=== PATIENT | female | born 1955 | race Caucasian/White ===

== ENCOUNTER 2023-05-23 12:40 | Inpatient (IN) | payer MEDICARE, OTHER ==
[~2023-05-23] VITALS: Ht 157.5 cm; Wt 68.9 kg
[2023-05-23] MEDS ORDERED: LABETALOL HCL IV 100MG VIAL ONE (13:00)
[2023-05-23] MEDS: LABETALOL 20 MG/4 ML VIAL IV ONE (13:10)
[2023-05-23] MEDS ORDERED: MECL-182 PO (13:32)
[2023-05-23] MEDS ORDERED: BRIM5DRO2 EACHEYE (13:32)
[2023-05-23] MEDS ORDERED: ATOR40TA PO (13:32)
[2023-05-23] MEDS ORDERED: ICOS1CAP PO (13:32)
[2023-05-23] MEDS ORDERED: EMPA10TA PO (13:32)
[2023-05-23] MEDS ORDERED: ERGO500093 PO (13:32)
[2023-05-23] MEDS ORDERED: ASPI-1420 PO (13:32)
[2023-05-23] MEDS ORDERED: INSU100I26 SQ (13:32)
[2023-05-23] MEDS ORDERED: ESCI10TA PO (13:32)
[2023-05-23] MEDS ORDERED: VALS1TAB7 PO (13:32)
[2023-05-23 13:41] LABS: BASOPHILS # (AUTO) 0.1 K/uL (0.0-0.2); BASOPHILS % (AUTO) 1.1 % (0.0-2.0); EOSINOPHILS # (AUTO) 0.1 K/uL (0.0-0.7); EOSINOPHILS % (AUTO) 1.5 % (0.0-6.0); HEMATOCRIT 37 % (33-45); HEMOGLOBIN 12.3 g/dL (11.5-14.8); LYMPHOCYTES % (AUTO) 34.5 % (20.0-44.0); MEAN CORPUSCULAR HEMOGLOBIN 30 PG (26.0-33.0); MEAN CORPUSCULAR HGB CONC 34 g/dl (31.0-36.0); MEAN CORPUSCULAR VOLUME 88 fL (82-100); MONOCYTES # (AUTO) 0.4 K/uL (0.1-1.30); MONOCYTES % (AUTO) 6.9 % (2.0-12.0); NEUTROPHILS # (AUTO) 3.3 K/uL (1.8-8.9); PLATELET COUNT (AUTO) 348 K/uL (150-450); RED BLOOD CELL COUNT(AUTO) 4.16 MIL/uL (4.0-5.2); RED CELL DISTRIBUTION WIDTH 13.5 % (11.5-15.0); WHITE BLOOD COUNT (AUTO) 5.9 K/uL (4.3-11.0)
[2023-05-23 13:50] LABS: CALCIUM, SERUM 8.7 mg/dL (8.5-10.1); CARBON DIOXIDE 23 mmol/L (21-32); CHLORIDE 104 mmol/L (98-107); CREATININE 1.5 mg/dL (0.6-1.3); GLUCOSE 334 mg/dL (74-106); POTASSIUM 4.3 mmol/L (3.5-5.1); SODIUM SERUM 137 mmol/L (136-145); UREA NITROGEN, BLOOD 60 mg/dL (7-18)
[2023-05-23] MEDS ORDERED: hydrALAZINE HCL IV 20 MG VIAL ONE (13:54)
[2023-05-23] MEDS ORDERED: ASPIRIN 325 MG TABLET ONE (13:54)
[2023-05-23] MEDS: ASPIRIN 325 MG TABLET PO ONE (13:58)
[2023-05-23] MEDS: hydrALAZINE HCL IV 20 MG VIAL IV ONE (13:58)
[2023-05-23 14:09] LABS: INR 0.94 (0.91-1.10); PARTIAL THROMBOPLASTIN TIME 23.4 SEC (24.3-34.3)
[2023-05-23 14:42] LABS: APPEARANCE,URINE CLEAR (CLEAR); BILIRUBIN,URINE NEGATIVE (NEGATIVE); BLOOD, URINE NEGATIVE Ery/uL (NEGATIVE); COLOR,URINE YELLOW (YELLOW); KETONES,URINE NEGATIVE (NEGATIVE); LEUKOCYTE ESTERASE ,URINE NEGATIVE (NEGATIVE); NITRITE, URINE NEGATIVE (NEGATIVE); PROTEIN,URINE 2+ mg/dl (NEGATIVE); UGLUCOSE 3+ mg/dL (NEGATIVE); UROBILINOGEN,URINE 0.2 EU/dL (0.2)
[2023-05-23 15:57] LABS: ADD URINE CULTURE NO; BACTERIA,URINE None seen /HPF (None Seen); RBC,URINE 0-2 /HPF (0-2); SQUAMOUS EPITHELIAL CELL,UR 0-2 /HPF (None Seen); WBC,URINE 0-2 /HPF (0-3)
[2023-05-23] MEDS ORDERED: MAG HYDROX/AL HYDROX/SIMETH 30 ML UDC PO PRN (16:00)
[2023-05-23] MEDS ORDERED: Z GUARD REMEDY 4 OZ OINT TP PRN (16:00)
[2023-05-23] MEDS ORDERED: HYDROCODONE/APAP 5/325MG TABLET PO PRN (16:00)
[2023-05-23] MEDS ORDERED: ZOLPIDEM TARTRATE 5 MG TABLET PO PRN (16:00)
[2023-05-23] MEDS ORDERED: ONDANSETRON HCL/PF 4 MG/2 ML VIAL IVP PRN (16:00)
[2023-05-23] MEDS ORDERED: DEXTROSE 50%-WATER 50 ML DISP.SYRIN IV PRN (16:00)
[2023-05-23] MEDS ORDERED: MAGNESIUM HYDROXIDE 30 ML UDC PO PRN (16:00)
[2023-05-23] MEDS: MECLIZINE HCL 12.5 MG TABLET PO SCH (16:40)
[2023-05-23] MEDS: VALSARTAN 80 MG TABLET PO SCH (16:42)
[2023-05-23] MEDS: BLOOD SUGAR DIAGNOSTIC 1 EACH STRIP VI SCH (17:08)
[2023-05-23] MEDS: ATORVASTATIN 40 MG TABLET PO SCH (17:09)
[2023-05-23] MEDS: INSULIN REGULAR, HUMAN 100 UNIT/ML 3 ML VIAL SQ PRN (17:10)
[2023-05-23] MEDS ORDERED: IOHEXOL-350 100 ML VIAL IV ONE (18:10)
[2023-05-23] MEDS ORDERED: CT SWABBABLE VALVE TRANS SET 1 EA INFUS.SET MC ONE (18:10)
[2023-05-23] MEDS ORDERED: IV NS 0.9% 250 ML IV ONE (18:10)
[2023-05-23 19:08] VITALS: BP 166/155; TEMP 98.2; O2SAT 98
[2023-05-23 20:00] VITALS: BP 149/49; TEMP 98.2; O2SAT 95
[2023-05-23] MEDS: *INSULIN REGULAR(HUMULIN R)HUM 100 UNIT/ML VIAL SQ PRN (22:12)
[2023-05-23] MEDS: ENOXAPARIN SODIUM 30 MG/0.3 ML DISP.SYRIN SQ SCH (22:12)
[2023-05-24] VITALS: BP 172/62; TEMP 98.2; O2SAT 96
[2023-05-24 04:00] VITALS: BP 119/60; TEMP 97.9; O2SAT 98
[2023-05-24 07:00] VITALS: BP 154/61; TEMP 98.4; O2SAT 98
[2023-05-24 07:01] LABS: BASOPHILS # (AUTO) 0.1 K/uL (0.0-0.2); BASOPHILS % (AUTO) 0.8 % (0.0-2.0); EOSINOPHILS # (AUTO) 0.2 K/uL (0.0-0.7); EOSINOPHILS % (AUTO) 2.8 % (0.0-6.0); HEMATOCRIT 35 % (33-45); HEMOGLOBIN 11.8 g/dL (11.5-14.8); LYMPHOCYTES # (AUTO) 3.9 K/uL (0.8-4.8); LYMPHOCYTES % (AUTO) 46.2 % (20.0-44.0); MEAN CORPUSCULAR HEMOGLOBIN 30 PG (26.0-33.0); MEAN CORPUSCULAR HGB CONC 34 g/dl (31.0-36.0); MEAN CORPUSCULAR VOLUME 89 fL (82-100); MONOCYTES # (AUTO) 0.7 K/uL (0.1-1.30); MONOCYTES % (AUTO) 7.9 % (2.0-12.0); NEUTROPHILS # (AUTO) 3.6 K/uL (1.8-8.9); NEUTROPHILS % (AUTO) 42.3 % (43.0-81.0); PLATELET COUNT (AUTO) 314 K/uL (150-450); RED BLOOD CELL COUNT(AUTO) 3.95 MIL/uL (4.0-5.2); RED CELL DISTRIBUTION WIDTH 13.8 % (11.5-15.0); WHITE BLOOD COUNT (AUTO) 8.5 K/uL (4.3-11.0)
[2023-05-24 07:30] LABS: CALCIUM, SERUM 9.1 mg/dL (8.5-10.1); CREATININE 1.7 mg/dL (0.6-1.3); MAGNESIUM 2.7 mg/dL (1.8-2.4); PHOSPHORUS 6.5 mg/dL (2.5-4.9)
[2023-05-24 07:45] LABS: POTASSIUM 5.4 mmol/L (3.5-5.1)
[2023-05-24] MEDS: ESCITALOPRAM OXALATE (10 MG) 10 MG TABLET PO SCH (09:00)
[2023-05-24] MEDS: ASPIRIN EC 81 MG TABLET.DR PO SCH (09:00)
[2023-05-24] MEDS: PANTOPRAZOLE 40 MG TABLET.DR PO SCH (09:13)
[2023-05-24 09:25] LABS: CHOLESTEROL 341 mg/dL (<200); HDL CHOLESTEROL 53 mg/dL (40-60); LDL 211 mg/dL (0-99); TRIGLYCERIDES 303 mg/dL (30-150)
[2023-05-24] MEDS: CLOPIDOGREL BISULFATE 75 MG TABLET PO ONE (14:37)
[2023-05-24] MEDS: SODIUM POLYSTYRENE SULFONATE 15 G/60 ML BOTTLE PO ONE (14:39)
[2023-05-24 16:00] VITALS: BP 149/65; TEMP 99.1; O2SAT 95
[2023-05-24 20:00] VITALS: BP 152/68; TEMP 97.9; O2SAT 98
[2023-05-25] VITALS: BP 145/60; TEMP 97.7; O2SAT 97
[2023-05-25 04:00] VITALS: BP 149/63; TEMP 97.9; O2SAT 96
[2023-05-25 08:00] VITALS: BP 124/61; TEMP 98.6; O2SAT 99
[2023-05-25] MEDS: CLOPIDOGREL BISULFATE 75 MG TABLET PO SCH (09:04)
[2023-05-25] MEDS: ERGOCALCIFEROL (VITAMIN D 2) 50,000 UNIT CAPSULE PO SCH (09:04)
[2023-05-25 09:35] LABS: BASOPHILS # (AUTO) 0.1 K/uL (0.0-0.2); BASOPHILS % (AUTO) 0.9 % (0.0-2.0); EOSINOPHILS # (AUTO) 0.1 K/uL (0.0-0.7); EOSINOPHILS % (AUTO) 1.3 % (0.0-6.0); HEMATOCRIT 34 % (33-45); HEMOGLOBIN 11.3 g/dL (11.5-14.8); LYMPHOCYTES # (AUTO) 2.2 K/uL (0.8-4.8); LYMPHOCYTES % (AUTO) 25.1 % (20.0-44.0); MEAN CORPUSCULAR HEMOGLOBIN 29 PG (26.0-33.0); MEAN CORPUSCULAR HGB CONC 33 g/dl (31.0-36.0); MEAN CORPUSCULAR VOLUME 88 fL (82-100); MONOCYTES # (AUTO) 0.4 K/uL (0.1-1.30); MONOCYTES % (AUTO) 5.2 % (2.0-12.0); NEUTROPHILS # (AUTO) 5.8 K/uL (1.8-8.9); NEUTROPHILS % (AUTO) 67.5 % (43.0-81.0); PLATELET COUNT (AUTO) 315 K/uL (150-450); RED BLOOD CELL COUNT(AUTO) 3.85 MIL/uL (4.0-5.2); RED CELL DISTRIBUTION WIDTH 13.7 % (11.5-15.0); WHITE BLOOD COUNT (AUTO) 8.7 K/uL (4.3-11.0)
[2023-05-25 09:59] LABS: ALBUMIN 2.9 g/dL (3.4-5.0); BILIRUBIN,TOTAL 0.3 mg/dL (0.2-1.0); CALCIUM, SERUM 8.3 mg/dL (8.5-10.1); CREATININE 1.5 mg/dL (0.6-1.3); MAGNESIUM 2.1 mg/dL (1.8-2.4); PHOSPHORUS 4.5 mg/dL (2.5-4.9); POTASSIUM 4.2 mmol/L (3.5-5.1); TOTAL PROTEIN, SERUM 6.6 g/dL (6.4-8.2)
[2023-05-25] MEDS: METOPROLOL TARTRATE 50 MG TABLET PO SCH (12:25)
[2023-05-25 16:00] VITALS: BP 128/54; TEMP 98.6; O2SAT 98
[2023-05-25] MEDS: IV NS 0.9% 1,000 ML IV PRN (19:35)
[2023-05-25 20:00] VITALS: BP 131/57; TEMP 98.6; O2SAT 97
[2023-05-25 20:40] VITALS: BP_SYST 131; BP_SYST 90; BP_DIAS 57; BP_DIAS 59; TEMP 98.6; TEMP 99; O2SAT 90; O2SAT 97
[2023-05-26] VITALS (7 sets, daily range): BP systolic 122–161; BP diastolic 57–93; TEMP 97.9–98.6; O2SAT 95–99
[2023-05-26] MEDS: ACETAMINOPHEN 325 MG TABLET PO PRN (00:06)
[2023-05-26 07:16] LABS: BASOPHILS # (AUTO) 0.1 K/uL (0.0-0.2); BASOPHILS % (AUTO) 0.6 % (0.0-2.0); EOSINOPHILS # (AUTO) 0.1 K/uL (0.0-0.7); EOSINOPHILS % (AUTO) 1.8 % (0.0-6.0); HEMATOCRIT 32 % (33-45); HEMOGLOBIN 10.6 g/dL (11.5-14.8); LYMPHOCYTES # (AUTO) 3.4 K/uL (0.8-4.8); MEAN CORPUSCULAR HEMOGLOBIN 29 PG (26.0-33.0); MEAN CORPUSCULAR HGB CONC 33 g/dl (31.0-36.0); MEAN CORPUSCULAR VOLUME 89 fL (82-100); MONOCYTES # (AUTO) 0.7 K/uL (0.1-1.30); MONOCYTES % (AUTO) 8.4 % (2.0-12.0); NEUTROPHILS % (AUTO) 48.2 % (43.0-81.0); PLATELET COUNT (AUTO) 271 K/uL (150-450); RED BLOOD CELL COUNT(AUTO) 3.59 MIL/uL (4.0-5.2); RED CELL DISTRIBUTION WIDTH 13.5 % (11.5-15.0); WHITE BLOOD COUNT (AUTO) 8.4 K/uL (4.3-11.0)
[2023-05-26 07:32] LABS: ALBUMIN 2.6 g/dL (3.4-5.0); BILIRUBIN,TOTAL 0.3 mg/dL (0.2-1.0); CALCIUM, SERUM 7.9 mg/dL (8.5-10.1); CREATININE 1.7 mg/dL (0.6-1.3); MAGNESIUM 2.2 mg/dL (1.8-2.4); POTASSIUM 4.1 mmol/L (3.5-5.1); TOTAL PROTEIN, SERUM 6.2 g/dL (6.4-8.2)
[2023-05-26] MEDS: ISOSORBIDE DINITRATE (20MG) 20 MG TABLET PO SCH (08:20)
[2023-05-26] MEDS: hydrALAZINE HCL 50 MG TABLET PO SCH (08:21)
[2023-05-26] MEDS ORDERED: PANT40TA49 PO (14:38)
[2023-05-26] MEDS ORDERED: ISOS20TA8 PO (14:38)
[2023-05-26] MEDS ORDERED: HYDR-4077 PO (14:38)
== END 2023-05-26 17:15 | disposition home health service (06) | DRG 65 ==
LOC: ER 12:40 → TELE 15:57 → MED 05-26 17:15
PROVIDERS: ATTEND Nurse Practitioner Acute Care
DX: I63.232 Cerebral infarction due to unspecified occlusion or stenosis of left carotid arteries (principal); N17.9 Acute kidney failure, unspecified; E11.65 Type 2 diabetes mellitus with hyperglycemia; I16.0 Hypertensive urgency; R29.700 NIHSS score 0; I12.9 Hypertensive chronic kidney disease with stage 1 through stage 4 chronic kidney disease, or unspecified chronic kidney disease; N18.9 Chronic kidney disease, unspecified; E87.5 Hyperkalemia; I25.10 Atherosclerotic heart disease of native coronary artery without angina pectoris; Z79.82 Long term (current) use of aspirin; Z86.73 Personal history of transient ischemic attack (TIA), and cerebral infarction without residual deficits; Z87.891 Personal history of nicotine dependence; R42 Dizziness and giddiness; E78.5 Hyperlipidemia, unspecified; E86.0 Dehydration; E11.51 Type 2 diabetes mellitus with diabetic peripheral angiopathy without gangrene; Z79.4 Long term (current) use of insulin; Z91.199 Patient's noncompliance with other medical treatment and regimen due to unspecified reason
CPT/HCPCS: 36415; 70450-TC; 70496-TC; 70498-TC; 70551-TC; 71045-TC; 80048-TC; 80053-TC; 80061-TC; 81001; 82962-TC; 83735-TC; 84100-TC; 84484-TC; 85025-TC; 85730-TC; 92526; 92611-TC; 93307-TC; 97110-TC; 97112-TC; 97116-TC; 97530-TC; A4223; G0378; J0360; J1650; J1815; J3490; J7030; J7050; J8597; Q9967

== ENCOUNTER 2024-09-03 04:35 | Emergency (ER) | payer MEDICARE, OTHER ==
[~2024-09-03] VITALS: Ht 152.4 cm; Wt 64.9 kg
[~2024-09-03 04:35] MED LIST: ASPI-1420 PO; ATOR40TA PO; BRIM5DRO2 EACHEYE; EMPA10TA PO; ERGO500093 PO; ESCI10TA PO; HYDR-4077 PO; ICOS1CAP PO; INSU100I26 SQ; ISOS20TA8 PO; MECL-182 PO; PANT40TA49 PO; VALS1TAB7 PO
[2024-09-03] MEDS ORDERED: IBUPROFEN 600 MG TABLET ONE (05:27)
[2024-09-03] MEDS: IBUPROFEN 600 MG TABLET PO ONE (05:29)
[2024-09-03] MEDS ORDERED: OXYC-128 PO (08:00)
[2024-09-03 08:24] VITALS: BP 146/83; TEMP 98.7; O2SAT 99
== END 2024-09-03 08:28 | disposition home or self-care (01) ==
LOC: ER 04:45
DX: M25.571 Pain in right ankle and joints of right foot (principal); I10 Essential (primary) hypertension; E11.9 Type 2 diabetes mellitus without complications; Z79.82 Long term (current) use of aspirin; Z79.84 Long term (current) use of oral hypoglycemic drugs; Z79.899 Other long term (current) drug therapy; Z60.2 Problems related to living alone; X50.1XXA Overexertion from prolonged static or awkward postures, initial encounter; Y93.89 Activity, other specified; Y92.89 Other specified places as the place of occurrence of the external cause; Y99.8 Other external cause status
CPT/HCPCS: 73610-TC